=== PATIENT | female | born 1955 | race Caucasian/White ===

== ENCOUNTER 2020-04-29 11:42 | Outpatient (REF) | payer OTHER, SELFPAY | END 2020-04-29 11:43 | disposition home or self-care (01) | LOC: HO.BBR 11:42 | PROVIDERS: Visit Provider Internal Medicine | DX: Z13.89 Encounter for screening for other disorder (principal) ==

== ENCOUNTER 2020-10-21 12:17 | Outpatient (REF) | payer OTHER, SELFPAY | END 2020-10-21 12:18 | disposition home or self-care (01) | LOC: HO.BBR 12:17 | PROVIDERS: Visit Provider Internal Medicine | DX: Z13.89 Encounter for screening for other disorder (principal) ==

== ENCOUNTER 2021-04-21 11:54 | Outpatient (REF) | payer OTHER, MEDICARE, SELFPAY | END 2021-04-21 11:55 | disposition home or self-care (01) | LOC: HO.BBR 11:54 | PROVIDERS: PCP Pediatrics; Visit Provider Internal Medicine | DX: Z13.89 Encounter for screening for other disorder (principal) ==

== ENCOUNTER 2023-06-21 12:25 | Outpatient (REF) | payer MEDICARE, SELFPAY | END 2023-06-21 12:26 | disposition home or self-care (01) | LOC: HO.BBR 12:25 | PROVIDERS: PCP Pediatrics; Visit Provider Internal Medicine | DX: Z13.89 Encounter for screening for other disorder (principal) ==